=== PATIENT | male | born 1955 | race Hispanic/Latino ===

== ENCOUNTER 2020-06-13 11:29 | Emergency (ER) | payer SELFPAY, OTHER ==
[2020-06-13] MEDS ORDERED: BENZONATATE 100 MG CAP PO ONE (12:24)
[2020-06-13 12:51] LABS: Absolute Lymphocytes (CBC) 1.1 K/uL (0.7-4.9); Basophils % 0.1 % (0-1.3); Hematocrit 39.5 % (39.6-49.0); MPV 9.7 fL (7.6-11.3); RBC Red Blood Cell Count 4.07 M/uL (4.33-5.43)
[2020-06-13 13:01] LABS: Protime INR 1.75
[2020-06-13 13:06] LABS: ALT/SGPT 46 U/L (12-78); AST/SGOT 45 U/L (15-37); Albumin 3.5 g/dL (3.4-5.0); Alkaline Phosphatase 41 U/L (45-117); BUN Blood Urea Nitrogen 11 mg/dL (7-18); Bicarbonate 26 mmol/L (21-32); Bilirubin Direct 0.2 mg/dL (0-0.2); Bilirubin Total 0.5 mg/dL (0.2-1.0); Glucose Level 105 mg/dL (74-106); Magnesium 2.2 mg/dL (1.8-2.4); NT PRO-BNP 21 pg/mL (<125); Sodium Level 138 mmol/L (136-145); Troponin (Emerg Dept Use Only) < 0.02 ng/mL (0.0-0.045)
--- NOTE | 2020-06-13 14:10 | RAD REPORT ---
EXAM DESCRIPTION: RAD - Chest Single View - 06/13/2020 2:01 pm CLINICAL HISTORY: Cough;Chest pain Chest pain. COMPARISON: No comparisons FINDINGS: Portable technique limits examination quality. Mild bilateral interstitial lung opacities are seen suspicious for interstitial pneumonitis. The hear t is normal in size. No displaced fractures.
[2020-06-13] MEDS ORDERED: CEFTRIAXONE/SWI 1gm 1 GM/10 ML SYR ONE (15:09)
[2020-06-13] MEDS ORDERED: AZITHROMYCIN 250 MG TAB ONE (15:09)
--- NOTE | 2020-06-13 15:20 | EDPHYS ---
Physician Documentation [facility] Name: Onur Adams Age: 64 yrs Sex: Male : 1955 Arrival Date: 06/13/2020 Time: 11:30 Bed 4 Private MD: ED Physician Luke Carlson HPI: 06/13 12:00 This 64 yrs old Male presents to ER via Ambulatory with complaints of Painful cp Cough. Historical: - Allergies: 12:01 shrimp; ss - Home Meds: 12:01 Norvasc [Active]; Zocor Oral [Active]; Coumadin [Active]; ss - PMHx: 12:01 CVA; Hypertension; High Cholesterol; ss - Immunization history:: Adult Immunizations up to date. - Social history:: Smoking status: Patient denies any tobacco usage or history of. ROS: 12:05 Constitutional: Negative for body aches, chills, fever, poor PO intake. cp 12:05 Eyes: Negative for injury, pain, redness, and discharge. cp 12:05 Cardiovascular: Positive for chest pain, with cough, Negative for edema, palpitations. 12:05 Respiratory: Positive for cough, with no reported sputum, shortness of breath, Negative for wheezing. 12:05 Abdomen/GI: Negative for abdominal pain, nausea, vomiting, and diarrhea. Exam: 12:00 ECG was reviewed by the Attending Physician. cp 12:08 Constitutional: The patient appears in no acute distress, alert, awake, cp non-diaphoretic, non-toxic, well developed, well nourished. 12:08 Head/Face: Normocephalic, atraumatic. cp 12:08 Eyes: Periorbital structures: appear normal, Conjunctiva: normal, no exudate, no injection, Sclera: no appreciated abnormality, Lids and lashes: appear normal, bilaterally. 12:08 ENT: External ear(s): are unremarkable, Ear canal(s): are normal, clear, TM's: dullness, bilaterally, Nose: is normal, Mouth: Lips: moist, Oral mucosa: pink and intact, moist, Posterior pharynx: is normal, airway is patent, no erythema, no exudate. 12:08 Neck: ROM/movement: is normal, is supple, without pain, no range of motions limitations, no meningismus, no nuchal rigidity. 12:08 Chest/axilla: Inspection: normal, Palpation: is normal, no crepitus, no tenderness. 12:08 Cardiovascular: Rate: tachycardic, Rhythm: regular, Edema: is not appreciated, JVD: is not appreciated. 12:08 Respiratory: the patient does not display signs of respiratory distress, Respirations: normal, no use of accessory muscles, no retractions, labored breathing, is not present, Breath sounds: bronchial sounds, that are mild, are heard diffusely, decreased breath sounds, are not appreciated, stridor, is not appreciated. 12:08 Abdomen/GI: Inspection: abdomen appears normal, Palpation: abdomen is soft and non-tender, in all quadrants. 12:08 Back: pain, is absent, ROM is normal. cp 12:08 Skin: no rash present. 12:08 Neuro: Orientation: to person, place \T\ time. Mentation: is normal, Motor: moves all fours, strength is normal. Vital Signs: 11:56 BP 127 / 88; Pulse 106; Resp 17; Pulse Ox 95% on R/A; Weight 77.11 kg; Height 5 ft. 8 ss in. (172.72 cm); Pain 0/10; 16:14 BP 122 / 86; Pulse 96; Resp 18; Temp 97.9; Pulse Ox 96% on R/A; ph 11:56 Body Mass Index 25.85 (77.11 kg, 172.72 cm) ss MDM: 11:36 Patient medically screened. [facility] 15:15 Data reviewed: vital signs, nurses notes, lab test result(s), EKG, radiologic studies, cp plain films. 15:15 Test interpretation: by ED physician or midlevel provider: ECG. 06/13 11:57 Order name: Basic Metabolic Panel 06/13 11:57 Order name: CBC with Diff 06/13 11:57 Order name: LFT's; Complete Time: 14:02 06/13 14:02 Interpretation: Normal except: AST 45; ALK 41; GLOB 4.5; A/G 0.8. 06/13 11:57 Order name: Magnesium; Complete Time: 14:02 06/13 11:57 Order name: NT PRO-BNP; Complete Time: 14:02 06/13 11:57 Order name: PT-INR; Complete Time: 14:02 cp 06/13 11:57 Order name: Troponin (emerg Dept Use Only); Complete Time: 14:02 cp 06/13 14:03 Interpretation: Within normal limits: TROPED < 0.02. cp 06/13 11:57 Order name: XRAY Chest (1 view); Complete Time: 14:31 cp 06/13 11:57 Order name: COVID-19 cp 06/13 11:57 Order name: Flu; Complete Time: 14:02 cp 06/13 11:57 Order name: Strep; Complete Time: 14:02 cp 06/13 11:58 Order name: Basic Metabolic Panel; Complete Time: 14:02 EDMS 06/13 11:58 Order name: CBC with Automated Diff; Complete Time: 14:02 EDMS 06/13 14:03 Interpretation: Normal except: RBC 4.07; HCT 39.5; PLT 131. cp 06/13 13:01 Order name: Throat Culture EDMS 06/13 11:57 Order name: Cardiac monitoring; Complete Time: 12:09 cp 06/13 11:57 Order name: EKG - Nurse/Tech; Complete Time: 12:09 cp 06/13 11:57 Order name: IV Saline Lock; Complete Time: 12:57 cp 06/13 11:57 Order name: Labs collected and sent; Complete Time: 12:57 cp 06/13 11:57 Order name: O2 Per Protocol; Complete Time: 12:09 cp 06/13 11:57 Order name: O2 Sat Monitoring; Complete Time: 12:09 cp EC:00 Rate is 102 beats/min. Rhythm is regular. MD interval is normal. QRS interval is cp normal. QT interval is normal. T waves are Inverted in lead aVR. Interpreted by me. Reviewed by me. Administered Medications: 12:40 Drug: Tessalon Perle 200 mg Route: PO; ph 16:27 Follow up: Response: No adverse reaction ll1 16:12 Drug: Rocephin 1 grams Route: IV; Rate: calculated rate; Site: right antecubital; ph 17:50 Follow up: Response: No adverse reaction; RASS: Alert and Calm (0); IV Status: ll1 Completed infusion 16:12 Drug: Zithromax 500 mg Route: PO; ph 16:27 Follow up: Response: No adverse reaction; RASS: Alert and Calm (0) ll1 16:12 Drug: NS 0.9% 500 ml Route: IV; Rate: bolus; Site: right antecubital; ph 16:25 Follow up: Response: No adverse reaction; RASS: Alert and Calm (0); IV Status: Order to ll1 discontinue infusion; IV Intake: 300ml Disposition: 06/14 05:44 Co-signature as Attending Physician, Luke Carlson MD I agree with the assessment and cinthia plan of care. Disposition: 06/13/20 15:19 Discharged to Home. Impression: Pneumonia in diseases classified elsewhere - bilateral. - Condition is Stable. - Discharge Instructions: Community-Acquired Pneumonia, Adult. - Prescriptions for warfarin 1 mg Oral tablet - take 0.5 tablet by ORAL route once daily; 20 tablet. Zithromax Z- Andrei 250 mg Oral Tablet - take 1 tablet by ORAL route as directed for 5 days Day 1 - take two (2) tablets one time. Day 2, 3, 4 , 5 take one (1) tablet once daily.; 6 tablet. Albuterol Sulfate 90 mcg/actuation - inhale 1-2 puff by INHALATION route every 4-6 hours; 1 Inhaler. Guaifenesin AC 10- 100 mg/5 mL Oral Liquid - take 10 milliliters by ORAL route every 6 hours As needed; 200 milliliter. - Medication Reconciliation Form, Thank You Letter, Antibiotic Education, Prescription Opioid Use form. - Follow up: Private Physician; When: 2 - 3 days; Reason: Recheck today's complaints. - Problem is new. - Symptoms have improved. Signatures: Dispatcher [employer] EDMT Luke Carlson MD MD cha Martinez, Eric em1 Mya Ahmadi RN RN Hailee Bowens RN RN Luke Dsouza PA PA cp Lewis, Lynsay RN ll1 Corrections: (The following items were deleted from the chart) 06/13 15:20 15:19 06/13/2020 15:19 Discharged to Home. Impression: Pneumonia in diseases classified cp elsewhere - bilateral lower lobe. Condition is Stable. Forms are Medication Reconciliation Form, Thank You Letter, Antibiotic Education, Prescription Opioid Use. Follow up: Private Physician; When: 2 - 3 days; Reason: Recheck today's complaints. Problem is new. Symptoms have improved. cp 16:28 15:20 06/13/2020 15:19 Discharged to Home. Impression: Pneumonia in diseases classified em1 elsewhere - bilateral. Condition is Stable. Discharge Instructions: Community-Acquired Pneumonia, Adult. Forms are Medication Reconciliation Form, Thank You Letter, Antibiotic Education, Prescription Opioid Use. Follow up: Private Physician; When: 2 - 3 days; Reason: Recheck today's complaints. Problem is new. Symptoms have improved. cp
--- NOTE | 2020-06-13 15:20 | ER ---
Nurse's Notes [facility] Name: Onur Adams Age: 64 yrs Sex: Male : 1955 Arrival Date: 06/13/2020 Time: 11:30 Bed 4 Private MD: Diagnosis: Pneumonia in diseases classified elsewhere-bilateral Presentation: 06/13 11:56 Chief complaint: Patient states: painful cough x 1 week. Coronavirus screen: Surgical ss mask placed on patient. Patient moved to private room, placed in contact and droplet isolation with eye protection until further assessment. Patient reports a cough. Patient reports shortness of breath or difficulty breathing. Patient denies measured and/or subjective temperature greater than 100.4F prior to today's visit. Patient reports travel on a cruise ship or to a country [facility] currently lists as an affected area. Patient denies contact with known and/or suspected case of COVID-19. Ebola Screen: Patient denies exposure to infectious person. Patient denies travel to an Ebola-affected area in the 21 days before illness onset. Initial Sepsis Screen: Does the patient meet any 2 criteria? No. Patient's initial sepsis screen is negative. Does the patient have a suspected source of infection? No. Patient's initial sepsis screen is negative. Risk Assessment: Do you want to hurt yourself or someone else? Patient reports no desire to harm self or others. Onset of symptoms was June 06, 2020. 11:56 Method Of Arrival: Ambulatory 11:56 Acuity: ADEEL 3 ss Historical: - Allergies: 12:01 shrimp; ss - Home Meds: 12:01 Norvasc [Active]; Zocor Oral [Active]; Coumadin [Active]; ss - PMHx: 12:01 CVA; Hypertension; High Cholesterol; ss - Immunization history:: Adult Immunizations up to date. - Social history:: Smoking status: Patient denies any tobacco usage or history of. Screenin:58 Abuse screen: Denies threats or abuse. Denies injuries from another. Nutritional ph screening: No deficits noted. Tuberculosis screening: No symptoms or risk factors identified. Fall Risk None identified. Assessment: 12:59 General: Appears in no apparent distress. comfortable, slender, well groomed, Behavior ph is calm, cooperative, appropriate for age, Denies fever. Pain: Complains of pain in back and chest Pain does not radiate. Neuro: Level of Consciousness is awake, alert, obeys commands, Oriented to person, place, time, situation. Cardiovascular: Reports chest pain, Denies fatigue, lightheadedness, nausea, palpitations, shortness of breath, Capillary refill < 3 seconds in bilateral fingers Patient's skin is warm and dry. Respiratory: Reports cough that is pain with cough Airway is patent Respiratory effort is even, unlabored, Respiratory pattern is regular, symmetrical, Denies shortness of breath. GI: No signs and/or symptoms were reported involving the gastrointestinal system. Derm: Skin is intact, is healthy with good turgor, Skin is pink, warm \T\ dry. 16:12 Reassessment: Patient appears in no apparent distress at this time. Patient and/or ph family updated on plan of care and expected duration. Pain level reassessed. Patient is alert, oriented x 3, equal unlabored respirations, skin warm/dry/pink. D/C pending completion of IV fluids, VSS. 17:45 Pain: Pain began unknown. ll1 Vital Signs: 11:56 BP 127 / 88; Pulse 106; Resp 17; Pulse Ox 95% on R/A; Weight 77.11 kg; Height 5 ft. 8 ss in. (172.72 cm); Pain 0/10; 16:14 BP 122 / 86; Pulse 96; Resp 18; Temp 97.9; Pulse Ox 96% on R/A; ph 11:56 Body Mass Index 25.85 (77.11 kg, 172.72 cm) ED Course: 11:30 Patient arrived in ED. mr 11:35 Luke Johnson PA is PHCP. cp 11:35 Luke Carlson MD is Attending Physician. cp 11:58 Triage completed. ss 12:01 Arm band placed on right wrist. ss 12:09 Hailee Bowens, ANGELITO is Primary Nurse. ph 12:30 Initial lab(s) drawn, by me, sent to lab. Inserted saline lock: 22 gauge in right ph antecubital area, using aseptic technique. Blood collected. Patient maintains SpO2 saturation greater than 95% on room air. 13:11 Patient has correct armband on for positive identification. Placed in gown. Bed in low ph position. Call light in reach. Side rails up X2. Pulse ox on. NIBP on. Door closed. Noise minimized. Visitors limited. Warm blanket given. 13:11 No provider procedures requiring assistance completed. ph 14:01 XRAY Chest (1 view) In Process Unspecified. EDMS 16:27 IV discontinued, intact, bleeding controlled, No redness/swelling at site. Pressure ll1 dressing applied. Administered Medications: 12:40 Drug: Tessalon Perle 200 mg Route: PO; ph 16:27 Follow up: Response: No adverse reaction ll1 16:12 Drug: Rocephin 1 grams Route: IV; Rate: calculated rate; Site: right antecubital; ph 17:50 Follow up: Response: No adverse reaction; RASS: Alert and Calm (0); IV Status: ll1 Completed infusion 16:12 Drug: Zithromax 500 mg Route: PO; ph 16:27 Follow up: Response: No adverse reaction; RASS: Alert and Calm (0) ll1 16:12 Drug: NS 0.9% 500 ml Route: IV; Rate: bolus; Site: right antecubital; ph 16:25 Follow up: Response: No adverse reaction; RASS: Alert and Calm (0); IV Status: Order to ll1 discontinue infusion; IV Intake: 300ml Intake: 16:25 IV: 300ml; Total: 300ml. ll1 Outcome: 15:19 Discharge ordered by MD. cp 16:28 Patient left the ED. em1 16:28 Discharged to home ambulatory. ll1 16:28 Condition: stable 16:28 Discharge instructions given to patient, Instructed on discharge instructions, follow up and referral plans. no drinking with medication, no driving heavy equipment, medication usage, Demonstrated understanding of instructions, follow-up care, medications, Prescriptions given X 4. Addendum: 06/17/2020 07:16 Addendum: COVID-19 Result: Positive result giiven to ED physician to notify pt. s s Physician: Luke Carlson MD Physician attempted to contact pt. Physician left voice mail for pt to call the ED back. Signatures: Dispatcher [employer] EDLA Faina Escalante Eric em1 Mya Ahmadi RN RN ss Hall, Patricia, RN RN ph Page, Corey, PA PA cp Lewis, Lynsay, RN RN 1
[2020-06-13] MEDS ORDERED: NA CHLORIDE 0.9% 500 ML ONE (16:07)
[2020-06-13 17:00] VITALS: BP 122/86; TEMP 97.9; O2SAT 96
--- NOTE | 2020-06-14 12:11 | EKG ---
Test Date: 2020-06-13 Test Time: 11:45:47 Asic Engineer: PRANEETH MEASUREMENT RESULTS: Intervals: Rate: 102 ND: 138 QRSD: 84 QT: 346 QTc: 450 [place]: P: 48 ND: 138 QRS: -15 T: 31 INTERPRETIVE STATEMENTS: Sinus tachycardia with occasional premature ventricular complexes Possible Anterior infarct, age undetermined Abnormal ECG No previous ECG available for comparison Electronically Signed On 06-14-20 12:09:37 CDT by Isaac Cartwright
== END 2020-06-13 16:28 | disposition home or self-care (01) ==
LOC: ER 11:29
DX: U07.1 COVID-19 (principal); J12.89 Other viral pneumonia
CPT/HCPCS: 36415; 71045; 80048; 80076; 83735; 83880; 84484; 85025; 85610; 87070; 87081; 87804; 93005; 96365; 96366; 99284; J0696; J7040; U0001

== ENCOUNTER 2020-06-17 12:32 | Inpatient (IN) | payer SELFPAY, OTHER ==
[2020-06-17 13:24] LABS: Absolute Lymphocytes (CBC) 0.9 K/uL (0.7-4.9); Basophils % 0.3 % (0-1.3); Hematocrit 35.3 % (39.6-49.0); Lymphocytes % 8.5 % (15.3-44.8); MPV 9.6 fL (7.6-11.3); RBC Red Blood Cell Count 3.65 M/uL (4.33-5.43)
--- NOTE | 2020-06-17 13:24 | RAD REPORT ---
EXAM DESCRIPTION: RAD - Chest Single View - 06/17/2020 1:15 pm CLINICAL HISTORY: CHEST PAIN Chest pain. COMPARISON: Chest Single View dated 06/13/2020 FINDINGS: Portable technique limits examination quality. Mild to moderate bilateral interstitial lung opacities are present most compatible with interstitial pneumonitis. The heart is normal in size. No displaced fractures. IMPRESSION: Xiac-dk-arijupth interstitial pneumonitis pattern.
[2020-06-17 13:29] LABS: Protime INR 1.46
[2020-06-17 13:42] LABS: ALT/SGPT 107 U/L (12-78); AST/SGOT 79 U/L (15-37); Albumin 2.9 g/dL (3.4-5.0); Alkaline Phosphatase 86 U/L (45-117); BUN Blood Urea Nitrogen 14 mg/dL (7-18); Bicarbonate 27 mmol/L (21-32); Bilirubin Direct 0.3 mg/dL (0-0.2); Bilirubin Total 0.8 mg/dL (0.2-1.0); Glucose Level 130 mg/dL (74-106); Magnesium 2.4 mg/dL (1.8-2.4); NT PRO-BNP 64 pg/mL (<125); Potassium 3.5 mmol/L (3.5-5.1); Sodium Level 137 mmol/L (136-145); Troponin (Emerg Dept Use Only) < 0.02 ng/mL (0.0-0.045)
--- NOTE | 2020-06-17 14:44 | ER ---
Nurse's Notes [facility] Name: Onur Adams Age: 64 yrs Sex: Male : 1955 Arrival Date: 06/17/2020 Time: 12:35 Bed 2 Private MD: Diagnosis: Acute upper respiratory infection, unspecified-Worsening Presentation: 06/17 12:53 Chief complaint: Patient states: Pt c/o anterior chest wall pain with cough and sob jr10 since Saturday; states that he was tested for COVID on Saturday but has not received his results. Denies any sick contacts at home. Coronavirus screen: Patient reports a cough. Patient reports shortness of breath or difficulty breathing. Patient denies measured and/or subjective temperature greater than 100.4F prior to today's visit. Patient denies travel on a cruise ship or to a country the [facility] currently lists as an affected area. Patient denies contact with known and/or suspected case of COVID-19. Patient instructed to continue to wear a mask when interacting with others. Patient moved to private room, placed in contact and droplet isolation with eye protection until further assessment. Prior COVID test collected on: pt reports that he was tested on Saturday. Ebola Screen: No symptoms or risks identified at this time. Initial Sepsis Screen: Does the patient meet any 2 criteria?. Initial Sepsis Screen: Does the patient meet any 2 criteria? HR > 90 bpm. Does the patient have a suspected source of infection? No. Patient's initial sepsis screen is negative. Risk Assessment: Do you want to hurt yourself or someone else? Patient reports no desire to harm self or others. Onset of symptoms. 12:53 Method Of Arrival: Wheelchair jr10 12:53 Acuity: ADEEL 2 jr10 Triage Assessment: 13:19 General: Appears in no apparent distress. Behavior is calm, cooperative, appropriate jr10 for age. Pain: Denies pain. Cardiovascular: Reports chest pain, anterior chest pain with cough only Pulses are all present. Edema is absent. Rhythm is regular. Historical: - Allergies: 13:00 shrimp; jr10 - Home Meds: 13:00 Coumadin [Active]; Norvasc [Active]; Zocor Oral [Active]; jr10 - PMHx: 13:00 CVA; High Cholesterol; Hypertension; jr10 - Immunization history:: Adult Immunizations. - Social history:: Smoking status: Patient denies any tobacco usage or history of. Screenin:40 Abuse screen: Denies threats or abuse. Denies injuries from another. Nutritional jr10 screening: No deficits noted. Tuberculosis screening: No symptoms or risk factors identified. Fall Risk Secondary diagnosis (15 points) CVA, hx of CVA without deficits. Assessment: 12:40 General: Appears in no apparent distress. Pain: Denies pain. Neuro: No deficits noted. jr10 Cardiovascular: Reports chest pain, only with deep breathing and cough, denies pain at present Rhythm is sinus tachycardia. Respiratory: Reports cough that is dry, persistent Breath sounds are diminished the patient has mild shortness of breath. GI: No deficits noted. : No deficits noted. EENT: No deficits noted. Musculoskeletal: Reports pt reports generalized fatigue Denies. 15:09 Reassessment: Dr Bryant at the bedside. sv Vital Signs: 12:53 BP 131 / 82; Pulse 105; Resp 20; Temp 98.5(TE); Pulse Ox 93% on R/A; Pain 0/10; jr10 13:29 BP 116 / 74; Pulse 105; Resp 26; Pulse Ox 96% on R/A; jr10 14:33 BP 99 / 67; Pulse 95; Resp 19; Temp 98.1; Pulse Ox 96% ; jr10 15:45 BP 107 / 82; Pulse 88; Resp 18; Pulse Ox 95% ; jr10 ED Course: 12:35 Patient arrived in ED. mr 12:39 Escalante Maite is Primary Nurse. jr10 12:40 Burak Hudson MD is Attending Physician. kdr 12:40 Patient has correct armband on for positive identification. Bed in low position. Call jr10 light in reach. Side rails up X2. pvc monitor on. Pulse ox on. NIBP on. 12:47 EKG done, by ED staff. jr10 12:55 Arm band placed on right wrist. jr10 12:59 Triage completed. jr10 13:15 XRAY Chest (1 view) In Process Unspecified. EDMS 13:21 Inserted saline lock: 20 gauge in right antecubital area, using aseptic technique. jr10 Blood collected. Patient maintains SpO2 saturation greater than 95% on room air. 14:43 Phillip Bryant MD is Hospitalizing Provider. kdr 15:11 Awaiting bed assignment. sv 15:54 No provider procedures requiring assistance completed. Patient admitted, IV remains in jr10 place. intact, No redness/swelling at site. Administered Medications: 14:53 Drug: Decadron - Dexamethasone 6 mg Route: IVP; Site: right antecubital; 10 15:45 Follow up: Response: No adverse reaction [facility] Outcome: 14:43 Decision to Hospitalize by Provider. kdr 15:53 Admitted to Tele accompanied by tech, via wheelchair, room 402, Report called to Bradley Avery RN 15:53 Condition: improved 15:53 Instructed on the need for admit. 16:35 Patient left the ED. 10 Signatures: Dispatcher [employer] EDTatum Schuster RN RN Burak Hudson MD MD kdr Rivera, Faina Escalante, Maite [facility] Corrections: (The following items were deleted from the chart) 13:18 12:53 Initial Sepsis Screen: Does the patient meet any 2 criteria? 10 10 13:18 12:53 BP 131 / 82; Pulse 105bpm; Resp 20bpm; Pulse Ox 93% RA; Pain 0/10; jr10 jr10 13:41 12:40 Patient has correct armband on for positive identification. Bed in low position. jr10 Call light in reach. Side rails up X2. jr10 13:41 12:55 Arm band placed on sv 10
--- NOTE | 2020-06-17 14:44 | EDPHYS ---
Physician Documentation [facility] Name: Onur Adams Age: 64 yrs Sex: Male : 1955 Arrival Date: 06/17/2020 Time: 12:35 Bed 2 Private MD: ED Physician Burak Hudson HPI: 06/17 17:04 This 64 yrs old Male presents to ER via Wheelchair with complaints of Chest kdr Pain. 17:04 The patient or guardian reports cough, that is intermittent, described as mild. Onset: kdr The symptoms/episode began/occurred gradually, 5 day(s) ago. Severity of symptoms: At their worst the symptoms were mild, moderate, in the emergency department the symptoms are unchanged. Modifying factors: The symptoms are alleviated by nothing, the symptoms are aggravated by Coughing and chest pain with coughing. Associated signs and symptoms: Pertinent positives: chest pain, with cough, with breathing, Pertinent negatives: diarrhea, ear ache, fever, nausea, rhinorrhea, sore throat, vomiting. The patient has not experienced similar symptoms in the past. The patient has been recently seen at the [facility] Emergency Department, this week. Historical: - Allergies: 13:00 shrimp; jr10 - Home Meds: 13:00 Coumadin [Active]; Norvasc [Active]; Zocor Oral [Active]; jr10 - PMHx: 13:00 CVA; High Cholesterol; Hypertension; jr10 - Immunization history:: Adult Immunizations. - Social history:: Smoking status: Patient denies any tobacco usage or history of. ROS: 17:04 Constitutional: Negative for fever, chills, and weight loss, Eyes: Negative for injury, kdr pain, redness, and discharge, ENT: Negative for injury, pain, and discharge, Neck: Negative for injury, pain, and swelling, Abdomen/GI: Negative for abdominal pain, nausea, vomiting, diarrhea, and constipation, Back: Negative for injury and pain, : Negative for injury, bleeding, discharge, and swelling, MS/Extremity: Negative for injury and deformity, Skin: Negative for injury, rash, and discoloration, Neuro: Negative for headache, weakness, numbness, tingling, and seizure activity. Psych: Negative for depression, anxiety, suicide ideation, homicidal ideation, and hallucinations, Allergy/Immunology: Negative for hives, rash, and allergies, Endocrine: Negative for neck swelling, polydipsia, polyuria, polyphagia, and marked weight changes, Hematologic/Lymphatic: Negative for swollen nodes, abnormal bleeding, and unusual bruising. 17:04 Cardiovascular: Positive for chest pain, with cough, Negative for edema, orthopnea, palpitations, paroxysmal nocturnal dyspnea. 17:04 Respiratory: Positive for cough, with no reported sputum, shortness of breath, on exertion. Negative for Exam: 12:59 ECG was reviewed by the Attending Physician. kdr 17:04 Constitutional: This is a well developed, well nourished patient who is awake, alert, kdr and in no acute distress. Head/Face: Normocephalic, atraumatic. Eyes: Pupils equal round and reactive to light, extra-ocular motions intact. Lids and lashes normal. Conjunctiva and sclera are non-icteric and not injected. Cornea within normal limits. Periorbital areas with no swelling, redness, or edema. Neck: Trachea midline, no thyromegaly or masses palpated, and no cervical lymphadenopathy. Supple, full range of motion without nuchal rigidity, or vertebral point tenderness. No Meningismus. Chest/axilla: Normal chest wall appearance and motion. Nontender with no deformity. No lesions are appreciated. Cardiovascular: Regular rate and rhythm with a normal S1 and S2. No gallops, murmurs, or rubs. Normal PMI, no JVD. No pulse deficits. Respiratory: Lungs have equal breath sounds bilaterally, clear to auscultation and percussion. No rales, rhonchi or wheezes noted. No increased work of breathing, no retractions or nasal flaring. Abdomen/GI: Soft, non-tender, with normal bowel sounds. No distension or tympany. No guarding or rebound. No evidence of tenderness throughout. Back: No spinal tenderness. No costovertebral tenderness. Full range of motion. Skin: Warm, dry with normal turgor. Normal color with no rashes, no lesions, and no evidence of cellulitis. MS/ Extremity: Pulses equal, no cyanosis. Neurovascular intact. Full, normal range of motion. Neuro: Awake and alert, GCS 15, oriented to person, place, time, and situation. Cranial nerves II-XII grossly intact. Motor strength 5/5 in all extremities. Sensory grossly intact. Cerebellar exam normal. Normal gait. Psych: Awake, alert, with orientation to person, place and time. Behavior, mood, and affect are within normal limits. Vital Signs: 12:53 BP 131 / 82; Pulse 105; Resp 20; Temp 98.5(TE); Pulse Ox 93% on R/A; Pain 0/10; jr10 13:29 BP 116 / 74; Pulse 105; Resp 26; Pulse Ox 96% on R/A; jr10 14:33 BP 99 / 67; Pulse 95; Resp 19; Temp 98.1; Pulse Ox 96% ; jr10 15:45 BP 107 / 82; Pulse 88; Resp 18; Pulse Ox 95% ; jr10 MDM: 14:42 Data reviewed: vital signs, nurses notes, lab test result(s), radiologic studies. [facility] Counseling: I had a detailed discussion with the patient and/or guardian regarding: the historical points, exam findings, and any diagnostic results supporting the discharge/admit diagnosis, lab results, radiology results, the need for further work-up and treatment in the hospital. ED course: Though the patient is stable, his CXR is definitely worsening since his last visit to the ED. 14:43 Patient medically screened. [facility] 17:04 ED course: The patient was stable in the ED but given the worsening since last in the [facility] ED. 06/17 12:41 Order name: Basic Metabolic Panel; Complete Time: 14:39 [facility] 06/17 12:41 Order name: CBC with Diff; Complete Time: 14:39 [facility] 06/17 12:41 Order name: LFT's; Complete Time: 14:39 [facility] 06/17 12:41 Order name: Magnesium; Complete Time: 14:39 [facility] 06/17 12:41 Order name: NT PRO-BNP; Complete Time: 14:39 [facility] 06/17 12:41 Order name: PT-INR; Complete Time: 14:39 [facility] 06/17 12:41 Order name: Troponin (emerg Dept Use Only); Complete Time: 14:39 [facility] 06/17 15:21 Order name: Comprehensive Metabolic Panel [facility] 06/17 15:21 Order name: Comprehensive Metabolic Panel [facility] 06/17 15:21 Order name: Magnesium [facility] 06/17 15:22 Order name: Urinalysis [facility] 06/17 15:22 Order name: CBC with Automated Diff [facility] 06/17 15:22 Order name: CBC with Automated Diff [facility] 06/17 15:22 Order name: Magnesium [facility] 06/17 12:41 Order name: XRAY Chest (1 view) [facility] 06/17 12:41 Order name: EKG; Complete Time: 12:42 [facility] 06/17 12:41 Order name: Cardiac monitoring; Complete Time: 13:20 [facility] 06/17 12:41 Order name: EKG - Nurse/Tech; Complete Time: 13:21 [facility] 06/17 15:22 Order name: CONS Physician Consult [facility] 06/17 15:22 Order name: Heart Healthy [facility] 06/17 15:22 Order name: Phosphorus [facility] 06/17 15:22 Order name: Phosphorus [facility] 06/17 15:34 Order name: C-Reactive Protein [facility] 06/17 15:34 Order name: CKMB Creatine Kinase MB [facility] 06/17 15:34 Order name: D-Dimer [facility] 06/17 15:34 Order name: Ferritin [facility] 06/17 15:34 Order name: Troponin I [facility] 06/17 15:38 Order name: Chest For Pe Angio [facility] 06/17 12:41 Order name: IV Saline Lock; Complete Time: 13:20 [facility] 06/17 12:41 Order name: Labs collected and sent; Complete Time: 13:20 [facility] 06/17 12:41 Order name: O2 Per Protocol; Complete Time: 13:31 [facility] 06/17 12:41 Order name: O2 Sat Monitoring; Complete Time: 13:21 kdr EC:59 Rate is 104 beats/min. Rhythm is regular, Sinus tachycardia with No ectopy. Left axis kdr deviation noted. IN interval is normal. QRS interval is normal. QT interval is normal. No Q waves. Clinical impression: Sinus tachycardia. Administered Medications: 14:53 Drug: Decadron - Dexamethasone 6 mg Route: IVP; Site: right antecubital; jr10 15:45 Follow up: Response: No adverse reaction jr10 Disposition: 06/17/20 14:43 Hospitalization ordered by Phillip Bryant for Observation. Preliminary diagnosis is Acute upper respiratory infection, unspecified - Worsening. - Bed requested for Telemetry/MedSurg (observation). - Status is Observation. jr10 - Condition is Fair. - Problem is an ongoing problem. - Symptoms have worsened. Signatures: Dispatcher [employer] [facility] Burak Hudson MD MD [facility] Ernestina Haque Maite Escalante jr10 Corrections: (The following items were deleted from the chart) 15:38 15:34 CT-LOW DOSE CT CHEST ordered. [facility] 15:41 14:43 Hospitalization Ordered by Phillip Bryant MD for Observation. Preliminary eb diagnosis is Acute upper respiratory infection, unspecified - Worsening. Bed requested for Telemetry/MedSurg (observation). Status is Observation. Condition is Fair. Problem is an ongoing problem. Symptoms have worsened. [facility] 16:35 15:41 06/17/2020 14:43 Hospitalization Ordered by Phillip Bryant MD for Observation. jr10 Preliminary diagnosis is Acute upper respiratory infection, unspecified - Worsening. Bed requested for Telemetry/MedSurg (observation). Status is Observation. Condition is Fair. Problem is an ongoing problem. Symptoms have worsened. eb
[2020-06-17] MEDS ORDERED: dexAMETHasone 4 MG/ML VIAL ONE (14:56)
[2020-06-17] MEDS ORDERED: ONDANSETRON 4 MG/2 ML VIAL IV PRN (15:16)
[2020-06-17] MEDS ORDERED: ACETAMINOPHEN 500 MG TAB PO PRN (15:16)
--- NOTE | 2020-06-17 15:26 | P.HP ---
Certification for Inpatient Patient admitted to: Inpatient With expected LOS: >2 Midnights Practitioner: I am a practitioner with admitting privileges, knowledge of patient current condition, hospital course, and medical plan of care. Services: Services provided to patient in accordance with Admission requirements found in Title 42 Section 412.3 of the Code of Federal Regulations Patient History Date of Service: 06/17/20 Reason for admission: SOB History of Present Illness: 64-year-old male with past medical history of hypertension came in with shortness of breath. The patient was seen in the ER early for fever and upper respiratory tract symptoms . The patient was tested for covid 19. Result is awaited. Patient came to the ER with fever and upper respiratory like symptoms. He complains of cough with mucoid expectoration. Complains of chest while having cough. Patient was diagnosed with COVID 19 and was admitted for further management . - Past Medical/Surgical History Past Medical History: Reviewed- Non-Contributory -: HTN -: HLD -: CVA Past Surgical History: Reviewed- Non-Contributory - Family History Family History: Reviewed- Non-Contributory - Social History Smoking Status: Never smoker Review of Systems 10-point ROS is otherwise unremarkable Physical Examination - Vital Signs Temperature: 99.8 F Blood Pressure: 132/78 Pulse: 82 Respirations: 18 - Physical Exam General: Alert, In no apparent distress HEENT: Atraumatic, Normocephalic Neck: Supple, 2+ carotid pulse no bruit Respiratory: Diminished, Crackles/rales Cardiovascular: Normal pulses, Regular rate/rhythm, Normal S1 S2 Capillary refill: <2 Seconds Gastrointestinal: Soft and benign, W/out hepatosplenomegaly Musculoskeletal: No clubbing, No swelling Integumentary: No rashes Neurological: Normal speech, Normal strength at 5/5 x4 extr Lymphatics: No axilla or inguinal lymphadenopathy Urinary: Other (no bladder distention) - Studies Laboratory Data (last 24 hrs) 06/17/20 13:14: PT 17.1 H, INR 1.46 06/17/20 13:14: WBC 10.5 D, Hgb 12.3 L, Hct 35.3 L, Plt Count 195 D 06/17/20 13:14: Sodium 137, Potassium 3.5, BUN 14, Creatinine 0.99, Glucose 130 H, Magnesium 2.4, Total Bilirubin 0.8, AST 79 H, ALT 107 H, Alkaline Phosphatase 86 Assessment and Plan - Problems (Diagnosis) (1) Pneumonia due to COVID-19 virus Current Visit: Yes Status: Acute (2) Acute viral syndrome Current Visit: Yes Status: Acute (3) Hypertension Current Visit: Yes Status: Acute (4) H/O: CVA (cerebrovascular accident) Current Visit: Yes Status: Acute - Plan Chest pain COVID 19 infection Bilateral pneumonia possibly due to covid 19 Hypertension History of CVA Plan Monitor under telemetry Trend cardiac enzymes Antitussives Will get a CT of the chest Will get a D-dimer, Ferritin, CRP Start on Decadron 6 mg daily Lovenox Will hold Coumadin for now Pulmonology consult GI/DVT prophylaxis Advanced directives full code - Advance Directives Does patient have a Living Will: No Does patient have a Durable POA for Healthcare: No Time Spent Managing Pts Care (In Minutes): 45
[2020-06-17] MEDS ORDERED: HYDRALAZINE HCL 20 MG/ML VIAL IV PRN (15:31)
[2020-06-17] MEDS ORDERED: dexAMETHasone 10 MG/ML VIAL IV SCH (16:00)
--- NOTE | 2020-06-17 16:29 | RAD REPORT ---
EXAM DESCRIPTION: CT - Chest For Pe Angio - 06/17/2020 4:03 pm CLINICAL HISTORY: Chest pain. PE protocol COMPARISON: No comparisons TECHNIQUE: CT angiogram of the pulmonary arteries was performed with MIP. All CT scans are performed using dose optimization technique as appropriate and may include automated exposure control or mA/KV adjustment according to patient size. FINDINGS: No evidence of pulmonary thromboembolism. No acute aortic finding demonstrated. Areas of ground-glass opacity are present bilaterally greatest in the lower lobes. Linear atelectasis is present in both lung bases. No significant pericardial or pleural fluid. No concerning bony finding. IMPRESSION: No evidence of pulmonary thromboembolism. Ground-glass opacities are present in both lungs, greatest in the lower lobes. This pattern is suspic ious for COVID-19 infection.
[2020-06-17 17:07] VITALS: BMI 25.0
[2020-06-17] MEDS: ENOXAPARIN 40 MG/0.4 ML SQ SCH (17:56)
[2020-06-17 18:14] LABS: CKMB Creatine Kinase MB 1.9 ng/mL (0.3-3.6); Ferritin 3491.8 ng/mL (26-388); Troponin I < 0.02 ng/mL (0.0-0.045)
[2020-06-17] MEDS ORDERED: POTASSIUM CL SA 10 MEQ TAB PO ONE (19:39)
[2020-06-17] MEDS: AZITHROMYCIN 250 MG TAB PO SCH (19:58)
[2020-06-17] MEDS: GUAIFENESIN/CODEINE 5ML UCUP PO PRN (19:58)
[2020-06-17] MEDS ORDERED: ATORVASTATIN 10 MG TAB PO SCH (21:00)
[2020-06-18] MEDS: GUAIFENESIN/CODEINE 5ML UCUP PO PRN (04:56)
[2020-06-18 07:05] LABS: Absolute Lymphocytes (CBC) 0.6 K/uL (0.7-4.9); Basophils % 0.4 % (0-1.3); Hematocrit 39.8 % (39.6-49.0); Lymphocytes % 10.6 % (15.3-44.8); MPV 10.3 fL (7.6-11.3); RBC Red Blood Cell Count 4.07 M/uL (4.33-5.43)
[2020-06-18 07:21] LABS: Albumin 2.7 g/dL (3.4-5.0); Bilirubin Total 0.5 mg/dL (0.2-1.0); Phosphorus 2.3 mg/dL (2.5-4.9); Potassium 5.4 mmol/L (3.5-5.1); Protein, Total 8.5 g/dL (6.4-8.2)
[2020-06-18] MEDS ORDERED: SIMVASTATIN 5 MG PO SCH (09:00)
[2020-06-18] MEDS ORDERED: AMLODIPINE 2.5 MG TAB PO SCH (09:00)
[2020-06-18] MEDS ORDERED: dexAMETHasone 4 MG/ML VIAL IV SCH (09:00)
[2020-06-18] MEDS ORDERED: ASPIRIN EC 81 MG TAB PO SCH (09:00)
[2020-06-18] MEDS: ENOXAPARIN 40 MG/0.4 ML SQ SCH (09:09)
[2020-06-18] MEDS: AZITHROMYCIN 250 MG TAB PO SCH (09:10)
--- NOTE | 2020-06-18 11:05 | P.DS ---
Admission Date: 06/17/20 Discharge Date: 06/18/20 Disposition: ROUTINE DISCHARGE Discharge Condition: FAIR Reason for Admission: SOB - Problems (1) Pneumonia due to COVID-19 virus Current Visit: Yes Status: Acute (2) Acute viral syndrome Current Visit: Yes Status: Acute (3) Hypertension Current Visit: Yes Status: Acute (4) H/O: CVA (cerebrovascular accident) Current Visit: Yes Status: Acute Brief History of Present Illness: 64-year-old male with past medical history of hypertension came in with shortness of breath. The patient was seen in the ER early for fever and upper respiratory tract symptoms . The patient was tested for covid 19. Result is awaited. Patient came to the ER with fever and upper respiratory like symptoms. He complains of cough with mucoid expectoration. Complains of chest while having cough. Patient was diagnosed with COVID 19 and was admitted for further management . Hospital Course: The patient was admitted and was monitored closely under telemetry. Started on IV steroids along with antitussives and oxygen supplementation. Home oxygen assessment was done and the patient needs home O2 at 2 L nasal cannula . it service manager was consulted for home O2. The patient may be discharged home on home oxygen support them with steroids and empirical antibiotics Patient was advised to follow up with pulmonology in 1 week Vital Signs/Physical Exam: Temp Pulse Resp BP Pulse Ox 96.4 F L 85 16 126/89 94 06/18/20 04:00 06/18/20 09:10 06/18/20 04:00 06/18/20 09:10 06/18/20 04:00 General: Alert, In no apparent distress HEENT: Atraumatic, Normocephalic Neck: Supple Respiratory: Diminished Cardiovascular: Normal pulses, Regular rate/rhythm Capillary refill: <2 Seconds Gastrointestinal: Soft and benign, W/out hepatosplenomegaly Musculoskeletal: No clubbing, No swelling Integumentary: No rashes Neurological: Normal strength at 5/5 x4 extr Lymphatics: No axilla or inguinal lymphadenopathy Laboratory Data at Discharge: WBC 6.0 K/uL (4.3-10.9) D 06/18/20 06:30 Hgb 13.6 g/dL (13.6-17.9) 06/18/20 06:30 Hct 39.8 % (39.6-49.0) 06/18/20 06:30 Plt Count 205 K/uL (152-406) 06/18/20 06:30 PT 17.1 SECONDS (9.5-12.5) H 06/17/20 13:14 INR 1.46 06/17/20 13:14 Sodium 140 mmol/L (136-145) 06/18/20 06:30 Potassium 5.4 mmol/L (3.5-5.1) H D 06/18/20 06:30 BUN 16 mg/dL (7-18) 06/18/20 06:30 Creatinine 0.89 mg/dL (0.55-1.3) 06/18/20 06:30 Glucose 158 mg/dL (74-106) H 06/18/20 06:30 Phosphorus 2.3 mg/dL (2.5-4.9) L 06/18/20 06:30 Magnesium 3.0 mg/dL (1.8-2.4) H D 06/18/20 06:30 Total Bilirubin 0.5 mg/dL (0.2-1.0) 06/18/20 06:30 AST 66 U/L (15-37) H 06/18/20 06:30 ALT 106 U/L (12-78) H 06/18/20 06:30 Alkaline Phosphatase 82 U/L (45-117) 06/18/20 06:30 Troponin I < 0.02 ng/mL (0.0-0.045) 06/17/20 17:10 Home Medications: Amlodipine Besylate [Norvasc] 2.5 mg PO DAILY 06/17/20 Aspirin [Aspirin EC 81 MG] 81 mg PO DAILY 06/17/20 Azithromycin Tab [Zithromax*] 250 mg PO DAILY 06/17/20 Simvastatin [Zocor] 5 mg PO DAILY 06/17/20 Warfarin Sodium [Jantoven] 5 mg PO DAILY 06/17/20 Cefdinir [Cefdinir*] 300 mg PO BID #14 cap 06/18/20 Famotidine 20 mg PO BID #30 tablet 06/18/20 Methylprednisolone [Medrol dosepack] 4 mg PO DIRECTED #1 genoveva 06/18/20 New Medications: Cefdinir [Cefdinir*] 300 mg PO BID #14 cap Famotidine 20 mg PO BID #30 tablet Methylprednisolone [Medrol dosepack] 4 mg PO DIRECTED #1 genoveva Diet: AHA Activity: Ad jewel Followup: Yosvany Smith MD [ACTIVE - CAN ADMIT] - Time spent managing pt's care (in minutes): 39
[2020-06-18] MEDS ORDERED: SODIUM PHOSPHATE 20 MM in NA CHLORIDE 0.9% 250 ML IV ONE (12:00)
[2020-06-18] MEDS ORDERED: SOD POLYSTYREN SUL 15 GM/60 ML UCUP PO ONE (12:00)
[2020-06-18] MEDS ORDERED: NA CHLORIDE 0.9% 500 ML IV ONE (12:00)
[2020-06-18 13:16] LABS: BUN Blood Urea Nitrogen 16 mg/dL (7-18); Bicarbonate 25 mmol/L (21-32); Glucose Level 205 mg/dL (74-106); Potassium 4.5 mmol/L (3.5-5.1); Sodium Level 140 mmol/L (136-145)
[2020-06-18 13:49] VITALS: BP 133/79; TEMP 97.2
[2020-06-18 17:27] VITALS: O2SAT 96
--- NOTE | 2020-06-19 08:11 | EKG ---
Test Date: 2020-06-17 Test Time: 12:47:48 Assistant Clinical Nurse Manager: JOSÉ LUIS MEASUREMENT RESULTS: Intervals: Rate: 104 MI: 132 QRSD: 84 QT: 352 QTc: 462 [place]: P: 39 MI: 132 QRS: -11 T: 12 INTERPRETIVE STATEMENTS: Sinus tachycardia Minimal voltage criteria for LVH, may be normal variant Possible Anterior infarct, age undetermined Abnormal ECG Compared to ECG 06/13/2020 11:45:47 Left ventricular hypertrophy now present Ventricular premature complex(es) no longer present Myocardial infarct finding still present Electronically Signed On 06-19-20 08:09:14 CDT by Isaac Cartwright
== END 2020-06-18 16:30 | disposition home or self-care (01) | DRG 177 ==
LOC: ER 12:32 → ERHOLD 15:17 → 4TH 16:04
PROVIDERS: ADMIT Family Medicine; ATTEND Family Medicine
PROC: 8E0ZXY6 Isolation (ICD-10-PCS; principal; 2020-06-17)
DX: U07.1 COVID-19 (principal); J12.89 Other viral pneumonia; E78.5 Hyperlipidemia, unspecified; I10 Essential (primary) hypertension; Z86.73 Personal history of transient ischemic attack (TIA), and cerebral infarction without residual deficits; Z79.82 Long term (current) use of aspirin; Z79.01 Long term (current) use of anticoagulants; Z79.899 Other long term (current) drug therapy; Z91.013 Allergy to seafood
CPT/HCPCS: 36415; 71045; 71275; 80048; 80053; 80076; 82553; 82728; 83735; 83880; 84100; 84484; 85025; 85379; 85610; 86140; 93005; 94760; 96374; 99285; J1650; J7040; J7050; Q9967